=== PATIENT | female | born 1935 | race Caucasian/White ===

== ENCOUNTER 2018-03-24 09:06 | Emergency (ER) | payer MEDICARE, OTHER ==
--- NOTE | 2018-03-24 09:18 | UC ---
Lower Extremity/Ankle HPI - History of Current Complaint Stated Complaint: R LEG INJURY Hx Obtained From: Patient - Allergies/Home Medications Allergies/Adverse Reactions: Allergies Allergy/AdvReac Type Severity Reaction Status Date / Time MS Codeine [Codeine] AdvReac Mild "out of it" Verified 06/16/16 08:41 MS Erythromycin AdvReac GI Upset Verified 06/16/16 08:41 [Erythromycin] PMH/Surg Hx/FS Hx/Imm Hx Cardiovascular History: Hypertension Other History Of: Negative For: Anticoagulant Therapy - Surgical History Surgical History: Yes Surgery Procedure, Year, and Place: PARTIAL HYSTERECTOMY. GALLBLADDER. TONSILLECTOMY - Family History Known Family History: Positive: Hypertension - mother Negative: Cardiac Disease - Social History Occupation: Retired Lives: With Family Alcohol Use: None Substance Use Type: None Smoking Status (MU): Never Smoked Tobacco Review of Systems All Other Systems Reviewed And Are Negative: Yes Discharge - Discharge Plan Referrals: Chika Pena NP [Primary Care Provider] -
--- NOTE | 2018-03-24 09:22 | UC ---
Lower Extremity/Ankle HPI - HPI Summary HPI Summary: 82 yo female presents with right leg wound. She tells me that 5 days ago she hit her right lower leg against a box and sustained a flap like superficial laceration. Has been bandaging the area since that time, but over the last 2 days has noticed yellow drainage and increased redness to the area. Has been applying neosporin. Denies fever or chills. Unsure date of last tetanus - History of Current Complaint Stated Complaint: R LEG INJURY Time Seen by Provider: 03/24/18 09:21 Hx Obtained From: Patient Onset/Duration: Sudden Onset Severity Initially: Mild Severity Currently: Mild Pain Intensity: 1 Pain Scale Used: 0-10 Numeric Able to Bear Weight: Yes - Allergies/Home Medications Allergies/Adverse Reactions: Allergies Allergy/AdvReac Type Severity Reaction Status Date / Time codeine Allergy See Comment Verified 03/24/18 09:34 erythromycin base Allergy GI Upset Verified 03/24/18 09:34 Home Medications: Home Medications LevoCETirizine TAB (NF) [Xyzal TAB (NF)] 5 mg PO DAILY 03/24/18 [History Confirmed 03/24/18] Triamterene/HCTZ 37.5-25 MG* [Dyazide CAP*] 1 cap PO DAILY 03/24/18 [History Confirmed 03/24/18] PMH/Surg Hx/FS Hx/Imm Hx Endocrine History: Dyslipidemia Cardiovascular History: Hypertension Other History Of: Negative For: Anticoagulant Therapy - Surgical History Surgical History: Yes Surgery Procedure, Year, and Place: PARTIAL HYSTERECTOMY. GALLBLADDER. TONSILLECTOMY - Family History Known Family History: Positive: Hypertension - mother Negative: Cardiac Disease - Social History Occupation: Retired Lives: With Family Alcohol Use: None Substance Use Type: None Smoking Status (MU): Never Smoked Tobacco Review of Systems Constitutional: Negative Skin: Other - Right lower leg wound Respiratory: Negative Cardiovascular: Negative Neurovascular: Negative Neurological: Negative Psychological: Negative All Other Systems Reviewed And Are Negative: Yes Physical Exam - Summary Physical Exam Summary: GENERAL: NAD. WDWN. No pain distress. SKIN: Right anterior lower le.0cm flap-like superficial laceration with surrounding erythema and mild purulent yellow discharge. Mild TTP. No streaking. NECK: Supple. Nontender. No lymphadenopathy. CHEST: No accessory muscle use. Breathing comfortably and in no distress. CV: Pulses intact NEURO: Alert. CN II-XII grossly intact. PSYCH: Age appropriate behavior. Triage Information Reviewed: Yes Vital Signs: Vital Signs: Temp Pulse Resp BP Pulse Ox 97.1 F 90 16 135/71 98 03/24/18 09:28 03/24/18 09:28 03/24/18 09:28 03/24/18 09:28 03/24/18 09:28 Vital Signs Reviewed: Yes Lower Extremity Course/Dx - Course Course Of Treatment: Wound infection right lower leg. tdap updated today. Wound bandaged with telfa. Culture obtained. Rx for keflex. Change dressing daily. - Differential Dx/Diagnosis Provider Diagnoses: Right lower leg wound infection Discharge - Sign-Out/Discharge Documenting (check all that apply): Patient Departure - Discharge Plan Condition: Stable Disposition: HOME Prescriptions: Cephalexin CAP* [Keflex CAP*] 500 mg PO BID #14 cap Patient Education Materials: Wound Infection (DC), Acute Wound Care (ED) Referrals: Chika Pena NP [Primary Care Provider] - Additional Instructions: If you develop a fever, shortness of breath, chest pain, new or worsening symptoms - please call your PCP or go to the ED. 1) Change dressing daily - Billing Disposition and Condition Condition: STABLE Disposition: Home Attestation Statement User Type: Provider - I was available for consult. This patient was seen by the [facility]. The patient was not presented to, seen by, or examined by me. -Terry
[2018-03-24 09:33] VITALS: BP 135/71
[2018-03-24] MEDS ORDERED: Tetan/Diph/Pertus SYR(Tdap)* 0.5 ML SYR(BOOSTRIX) use SYR IM ONE (09:38)
== END 2018-03-24 10:03 | disposition home or self-care (01) ==
LOC: UCEAST 09:06
DX: S81.811A Laceration without foreign body, right lower leg, initial encounter (principal); L08.9 Local infection of the skin and subcutaneous tissue, unspecified; I10 Essential (primary) hypertension; Z88.1 Allergy status to other antibiotic agents; Z88.5 Allergy status to narcotic agent; Z79.899 Other long term (current) drug therapy; W22.8XXA Striking against or struck by other objects, initial encounter; Y92.9 Unspecified place or not applicable
CPT/HCPCS: 87070; 87077; 87186; 87205; 87640; 87641; 90471; 90715; 99212; G0463

== ENCOUNTER 2018-03-28 09:32 | Emergency (ER) | payer MEDICARE, OTHER ==
[2018-03-28 09:52] VITALS: BP 147/68
--- NOTE | 2018-03-28 10:00 | UC ---
Skin Complaint HPI - HPI Summary HPI Summary: This is renita Butt documenting for Dr. Altaf Bunn MD. Pt is an 82 y/o F who presents to [facility] c/o abrasion on right lower leg. She was seen here in 03/24/18 for same abrasion and says the Keflex prescription has not been helping. She is in more pain and the area is now erythematous and has yellowish discharge. - History of Current Complaint [facility] Time Se[facility] by Provider: 03/28/18 09:41 Stated Complaint: LEG PAIN Hx Obtained From: Patient Onset/Duration: Lasting Days, Still Present Skin Exposure Onset/Duration: Days Ago Onset Severity: Worse Since: - Her last visit on 03/24/18 Current Severity: None Pain Intensity: 0 Pain Scale Used: 0-10 Numeric Location: Discrete - Right Lower Leg Character: Pain, Redness Alleviating Factor(s): Nothing Associated Signs & Symptoms: Positive: Bruising - Allergy/Home Medications Allergies/Adverse Reactions: Allergies Allergy/AdvReac Type Severity Reaction Status Date / Time codeine Allergy See Comment Verified 03/28/18 09:46 erythromycin base Allergy GI Upset Verified 03/28/18 09:46 Review of Systems Constitutional: Fever - NEGATIVE Skin: Bruising - Right lower leg, Other - Erythema All Other Systems Reviewed And Are Negative: Yes PMH/Surg Hx/FS Hx/Imm Hx Endocrine History: Dyslipidemia Cardiovascular History: Hypertension Other History Of: Negative For: Anticoagulant Therapy - Surgical History Surgical History: Yes Surgery Procedure, Year, and Place: PARTIAL HYSTERECTOMY. GALLBLADDER. TONSILLECTOMY - Family History Known Family History: Positive: Hypertension - mother Negative: Cardiac Disease - Social History Alcohol Use: None Substance Use Type: None Smoking Status (MU): Never Smoked Tobacco - Immunization History Most Recent Tetanus Shot: not sure Physical Exam - Summary Physical Exam Summary: VITAL SIGNS: Reviewed. GENERAL: Patient is a well-developed and nourished female who is lying comfortable in the stretcher. Patient is not in any acute respiratory distress. HEAD AND FACE: Normocephalic EYES: PERRLA, EOMI x 2. EARS: Hearing grossly intact. MOUTH: Oropharynx within normal limits. NECK: Supple, trachea is midline, no adenopathy, no JVD, no carotid bruit. CHEST: Symmetric, no tenderness at palpation LUNGS: Clear to auscultation bilaterally. No wheezing or crackles. CVS: Regular rate and rhythm, S1 and S2 present, no murmurs or gallops appreciated. ABDOMEN: Soft, non-tender. Bowel sounds are normal. No abdominal abnormal pulsations. EXTREMITIES: 1 x 1 abrasion on right lower leg with yellow discharge and surrounding erythema. Good pulses. Full ROM in all major joints, no edema, no cyanosis or clubbing. NEURO: Alert and oriented x 3. No acute neurological deficits. Speech is normal and follows commands. SKIN: Dry and warm Triage Information Reviewed: Yes Vital Signs: Initial Vital Signs Temp 97.1 F 03/28/18 09:46 Pulse 87 03/28/18 09:46 Resp 16 03/28/18 09:46 BP 147/68 03/28/18 09:46 Pulse Ox 99 03/28/18 09:46 Vital Signs Reviewed: Yes Course/Dx - Course Course Of Treatment: Patient is a 82-year-old female who presents to the emergency room with worsening cellulitis. She reports that he a couple days ago the patient was seen in the urgent care and she was found to have a cellulitis. She was placed on Keflex, she's been taking his medication for couple days and the symptoms worsen. I checked in the cultures and sensitivities and the patient is sensitive to Bactrim. Therefore the patient was offered Bactrim however she was instructed to go to the emergency room if the symptoms worsen. The patient understands and agrees. Patient is hemolyticus stable alert and oriented 3. - Differential Diagnoses - Skin Complaint Differential Diagnoses: Cellulitis, Contact Dermatitis, Drug Rash, Eczema - Diagnoses Provider Diagnoses: Acute cellulitis Discharge - Sign-Out/Discharge Documenting (check all that apply): Patient Departure - Discharge Plan Condition: Stable Disposition: HOME Prescriptions: Sulfamethox/Trimethoprim DS* [Bactrim DS 800/160 TAB*] 1 tab PO BID #20 tab Patient Education Materials: Cellulitis (ED) Referrals: Chika Pena NP [Primary Care Provider] - Additional Instructions: Take medications as instructed and adhere to plan Take Acetaminophen or ibuprofen for pain or fever Increase your fluid intake Return to the or go to the emergency department if symptoms worsen Follow-up with primary care physician in next 2-3 days - Billing Disposition and Condition Condition: STABLE Disposition: Home
== END 2018-03-28 10:03 | disposition home or self-care (01) ==
LOC: UCEAST 09:32
DX: S80.811D Abrasion, right lower leg, subsequent encounter (principal); L03.115 Cellulitis of right lower limb; X58.XXXD Exposure to other specified factors, subsequent encounter; Z88.1 Allergy status to other antibiotic agents; Z88.5 Allergy status to narcotic agent
CPT/HCPCS: 99212; G0463

== ENCOUNTER 2019-03-29 09:28 | Emergency (ER) | payer MEDICARE, OTHER ==
[2019-03-29 09:39] VITALS: BP 138/87
--- NOTE | 2019-03-29 09:57 | UC ---
General HPI - HPI Summary HPI Summary: 2 wks ago she left on a plane to [place] and after approx 3 days she began to feel ' off'. She then drove for a 6 hr trip with stops with family and continued to feel weak, fatigued. Other family members were also ill but recovered quickly. She has flown back yesterday and comes in today with fatigue, weakness, decr. activity. She did have diarrhea x2 this AM but otherwise no other symptoms. oF NOTE SHE LOST HER PARTNER OF 65 YRS. 3 WKS. AGO. She is here w/ her son who states she is usually much stronger than this and more mobile. - History of Current Complaint Chief Complaint: UCGeneralIllness Stated Complaint: WEAK CHILLS Time Seen by Provider: 03/29/19 09:47 Hx Obtained From: Patient Onset/Duration: Lasting Weeks - 2 Pain Intensity: 0 - Allergy/Home Medications Allergies/Adverse Reactions: Allergies Allergy/AdvReac Type Severity Reaction Status Date / Time codeine Allergy See Comment Verified 03/29/19 09:31 erythromycin base Allergy GI Upset Verified 03/29/19 09:31 PMH/Surg Hx/FS Hx/Imm Hx Previously Healthy: Yes Cardiovascular History: Cardiac Disease, Hypertension Other History Of: Negative For: Anticoagulant Therapy - Surgical History Surgical History: Yes Surgery Procedure, Year, and Place: PARTIAL HYSTERECTOMY. GALLBLADDER. TONSILLECTOMY - Family History Known Family History: Positive: Hypertension - mother Negative: Cardiac Disease - Social History Alcohol Use: None Substance Use Type: None Smoking Status (MU): Never Smoked Tobacco - Immunization History Most Recent Tetanus Shot: not sure Review of Systems All Other Systems Reviewed And Are Negative: Yes Constitutional: Positive: Chills, Fatigue. Negative: Fever ENT: Negative: Dental Pain, Sore Throat, Sinus Congestion Respiratory: Negative: Cough Cardiovascular: Negative: Palpitations, Chest Pain Gastrointestinal: Positive: Diarrhea - Started this AM Genitourinary: Negative: Dysuria Musculoskeletal: Negative: Myalgia Neurological: Negative: Headache, Weakness, Numbness Physical Exam Triage Information Reviewed: Yes Appearance: Well-Appearing Vital Signs: Initial Vital Signs Temp 97.9 F 03/29/19 09:33 Pulse 100 03/29/19 09:33 Resp 20 03/29/19 09:33 BP 138/87 03/29/19 09:33 Pulse Ox 100 03/29/19 09:33 Vital Signs Reviewed: Yes Eyes: Positive: Conjunctiva Clear ENT: Positive: Pharynx normal, TMs normal, Uvula midline Neck: Positive: Supple, Nontender, No Lymphadenopathy Respiratory Exam: Normal Cardiovascular Exam: Normal Neurological: Positive: Alert Psychological: Positive: Normal Response To Family Skin: Negative: Rashes Course/Dx - Course Course Of Treatment: Fatigue and weakness x 2 wks w/ no other symptoms but did report 2x diarrhea this AM. Exam unremarkable. Given vague symptoms obtained EKG to r/o cardiac source and UA. EKG reviewed w/ Dr. Walker and compared w/ EKG from but no other recent EKGs in this system. Although not normal appearing with ST depression in lat leads, unclear if this is new. Strongly recommended having her see primary care tomorrow for further evaluation of this and unclear if this is cause of her fatigue. UA did show leuks and we can tx empirically ; sending for cx. Vitals good. This could be viral etiology as she is just now having diarrhea but unsure if this would explain the 2 wks of fatigue. I have asked her to go see her primary care provider to continue evaluation. Of note her partner of approx 50yrs. 3 wks ago. - Differential Dx - Multi-Symptom Differential Diagnoses: Urinary Tract Infection, Other - Diagnoses Provider Diagnosis: Fatigue Discharge - Sign-Out/Discharge Documenting (check all that apply): Patient Departure All imaging exams completed and their final reports reviewed: No Studies - Discharge Plan Condition: Good Disposition: HOME Prescriptions: Sulfamethox/Trimethoprim DS* [Bactrim DS 800/160 TAB*] 1 tab PO BID 5 Days #10 tab Patient Education Materials: Fatigue (ED) Referrals: Chika Pena NP [Primary Care Provider] - Additional Instructions: As we discussed I think you may have a UTI causing some of your symptoms. I am treating you for this. Your EKG is not completely normal so you should see your primary care provider within the next 1-3 days for further evaluation. Any sudden changes to your symptoms please go to the Emergency Room - Billing Disposition and Condition Condition: GOOD Disposition: Home - Attestation Statements Provider Attestation: Per institutional requirements, I have reviewed the chart, however, I was not consulted specifically or made aware of this patient by the midlevel provider. I did not personally evaluate, interact with , or disposition this patient.
== END 2019-03-29 11:02 | disposition home or self-care (01) ==
LOC: UCEAST 09:28
DX: R53.83 Other fatigue (principal); R19.7 Diarrhea, unspecified; I10 Essential (primary) hypertension; Z88.5 Allergy status to narcotic agent
CPT/HCPCS: 81002; 87086; 93005; 99212; G0463

== ENCOUNTER 2019-04-09 08:19 | Emergency (ER) | payer MEDICARE, OTHER ==
[2019-04-09 09:37] LABS: Hematocrit 43 % (35-47); Hemoglobin 14.3 g/dL (12.0-16.0); Mean Corpuscular HGB Conc 33 g/dL (31-36); Mean Corpuscular Hemoglobin 29 pg (27-31); Mean Corpuscular Volume 88 fL (80-97); Mean Platelet Volume 8.9 fL (7.4-10.4); Platelet Count 396 10^3/uL (150-450); Red Cell Distribution Width 15 % (10-15); White Blood Count 16.1 10^3/uL (3.5-10.8)
--- NOTE | 2019-04-09 09:37 | ED ---
GI/ HPI - HPI Summary HPI Summary: Patient is an 83 year old female with no significant medical history presenting with constipation for 2 weeks. Patient traveled to [place] 3 weeks ago and developed a stomach bug and had diarrhea for which she was treated. When the illness resolved, patient was able to have normal bowel movements before experiencing constipation a week later. Patient usually has normal bowel movements once a day. Patient is active and consumes a regular diet. There have been no changes in her medications. Patient denies back pain, oliguria or dysuria. Patient is able to pass gas normally. Patient denies abdominal pain for the last 2 weeks; however, she took a laxative (Exlax) last night which caused abdominal discomfort. no fever. she has some nausea after laxative but no vomiting. Note written by MICHELLE Gracia - History of Current Complaint Chief Complaint: EDConstipation Time Seen by Provider: 04/09/19 08:28 Stated Complaint: CONSTIPATED 2 WKS PER PT Pain Intensity: 8 - Allergy/Home Medications Allergies/Adverse Reactions: Allergies Allergy/AdvReac Type Severity Reaction Status Date / Time codeine Allergy See Comment Verified 03/29/19 09:31 erythromycin base Allergy GI Upset Verified 03/29/19 09:31 PMH/Surg Hx/FS Hx/Imm Hx Endocrine/Hematology History: Denies: Hx Anticoagulant Therapy Cardiovascular History: Reports: Hx Hypertension - Cancer History Hx Chemotherapy: No Hx Radiation Therapy: No - Surgical History Surgery Procedure, Year, and Place: PARTIAL HYSTERECTOMY. GALLBLADDER. TONSILLECTOMY Infectious Disease History: No Infectious Disease History: Denies: Traveled Outside the in Last 30 Days - Family History Known Family History: Positive: Hypertension - mother Negative: Cardiac Disease - Social History Alcohol Use: None Substance Use Type: Reports: None Smoking Status (MU): Never Smoked Tobacco Review of Systems Negative: Fever Positive: Abdominal Pain Genitourinary: Negative Positive: no symptoms reported Skin: Negative All Other Systems Reviewed And Are Negative: Yes Physical Exam Triage Information Reviewed: Yes Vital Signs On Initial Exam: Initial Vitals Temp Pulse Resp BP Pulse Ox 97.2 F 95 18 126/87 94 04/09/19 08:22 04/09/19 08:22 04/09/19 08:22 04/09/19 08:22 04/09/19 08:22 Vital Signs Reviewed: Yes Appearance: Positive: Well-Appearing, No Pain Distress Skin: Positive: Warm, Skin Color Reflects Adequate Perfusion Head/Face: Positive: Normal Head/Face Inspection Eyes: Positive: Normal ENT: Positive: Normal ENT inspection Neck: Positive: Supple Respiratory/Lung Sounds: Positive: Clear to Auscultation, Breath Sounds Present Cardiovascular: Positive: Normal Abdomen Description: Positive: Nontender, Soft, Other: - no stool on rectal exam Bowel Sounds: Positive: Hypoactive Musculoskeletal: Positive: Normal Neurological: Positive: Normal Psychiatric: Positive: Normal AVPU Assessment: Alert Diagnostics - Vital Signs Vital Signs Temp Pulse Resp BP Pulse Ox 04/09/19 09:10 75 97 04/09/19 08:31 94 157/92 91 04/09/19 08:22 97.2 F 95 18 126/87 94 - Laboratory Result Diagrams: 04/09/19 09:25 04/09/19 09:25 Lab Statement: Any lab studies that have been ordered have been reviewed, and results considered in the medical decision making process. - Radiology abd Radiology Interpretation Completed By: Radiologist Summary of Radiographic Findings: IMPRESSION: NONOBSTRUCTIVE BOWEL GAS PATTERN. LARGE AMOUNT OF STOOL THROUGHOUT THE COLON. - CT abd CT Interpretation Completed By: Radiologist Summary of CT Findings: IMPRESSION: LARGE AMOUNT OF STOOL THROUGHOUT THE COLON. FATTY INFILTRATION OF THE LIVER. 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 Re-Evaluation - Re-Evaluation First Eval Re-Evaluation Time: 10:57 Change: Unchanged Comment: no pain GIGU Course/Dx - Course Course Of Treatment: 83 year old patient came in with constipation and some abdominal pain. Patient has been constipated for 2 weeks and is able to pass gas. Patient has no fever and has some nausea but no vomiting after taking a laxative. Physical exam was within normal limits. Abdominal exam showed hypoactive bowel sounds and some diffuse abdominal tenderness and discomfort. Digital rectal exam was within normal limits with no stool in the rectal vault. Abdominal X-ray showed stool throughout. CBC 16, K 3 - gave run of 20mEg K. With elevated white count, CT was ordered. CT just shows stool. Discuss options with patient and patient wants to do mag citrate. gave MiraLAX and Colace to continue at home. Told to follow up primary. Patient understands and agrees plan. - Diagnoses Differential Diagnoses - Female: Constipation, Fecal Impaction, Urinary Tract Infection Provider Diagnoses: Constipation Discharge - Sign-Out/Discharge Documenting (check all that apply): Patient Departure Patient Received Moderate/Deep Sedation with Procedure: No - Discharge Plan Condition: Good Disposition: HOME Prescriptions: Docusate CAP* [Colace Cap*] 100 mg PO BID #14 cap Polyethylene Glycol 3350* [Miralax*] 17 gm PO DAILY #10 packet Patient Education Materials: Constipation (ED) Referrals: Chika Pena NP [Primary Care Provider] - Additional Instructions: take miralax packet in 8 ounce of liquid daily take colace twice a day increase fiber intake Take Tylenol every 6 hours as needed for pain follow up with primary within 5 days Return to ED if develop any new or worsening symptoms - Billing Disposition and Condition Condition: GOOD Disposition: Home
[2019-04-09] MEDS ORDERED: NS 0.9% 1000 ML** 1,000 ML IV ONE ×2 (09:51→10:50)
[2019-04-09 10:06] LABS: ALT 29 U/L (7-52); AST 19 U/L (13-39); Albumin 4.2 g/dL (3.2-5.2); Albumin/Globulin Ratio 1.2 (1-3); Alkaline Phosphatase 162 U/L (34-104); Anion Gap 10 mmol/L (2-11); BUN/Creatinine Ratio 25.8 (8-20); Blood Urea Nitrogen 24 mg/dL (6-24); C Reactive Protein 20.18 mg/L (<8.01); CO2 Carbon Dioxide 31 mmol/L (22-32); Calcium 9.4 mg/dL (8.6-10.3); Chloride 96 mmol/L (101-111); EGFR African American 69.7 (>60); EGFR Non-African American 57.6 (>60); Globulin 3.4 g/dL (2-4); Glucose 160 mg/dL (70-100); Sodium 137 mmol/L (135-145); Total Protein 7.6 g/dL (6.4-8.9)
[2019-04-09] MEDS ORDERED: KCL 20 MEQ/100 ML IVPREMIX* 20 MEQ/100 ML BAG IV ONE (10:12)
[2019-04-09 10:25] LABS: ABS Basophils 0.1 10^3/ul (0-0.2); ABS Lymphocytes 1.3 10^3/ul (1.0-4.8); ABS Monocytes 0.5 10^3/ul (0-0.8); ABS Neutrophils 14.2 10^3/ul (1.5-7.7); Eosinophil % 0.2 %
[2019-04-09 12:00] LABS: Urine Appearance Clear; Urine Bilirubin Negative (Negative); Urine Blood Negative (Negative); Urine Color Yellow; Urine Glucose Negative (Negative); Urine Ketones Negative (Negative); Urine Nitrite Negative (Negative); Urine Protein Negative (Negative); Urine Specific Gravity 1.009 (1.010-1.030); Urine Urobilinogen Negative (Negative)
[2019-04-09] MEDS ORDERED: Iodixanol* (CONTRAST) 320 MG/ML 100 ML SDV IV ONE (12:04)
[2019-04-09] MEDS ORDERED: Magnesium CITRATE* 300 ML BTL PO ONE (12:51)
[2019-04-09 13:21] VITALS: BP 143/87
== END 2019-04-09 13:18 | disposition home or self-care (01) ==
LOC: ED 08:19
DX: K59.00 Constipation, unspecified (principal); Z88.1 Allergy status to other antibiotic agents; Z88.5 Allergy status to narcotic agent; I10 Essential (primary) hypertension; K76.0 Fatty (change of) liver, not elsewhere classified; I70.0 Atherosclerosis of aorta; I71.4 Abdominal aortic aneurysm, without rupture
CPT/HCPCS: 36415; 74019; 74177; 80053; 81003; 83605; 83690; 85025; 86140; 96365; 96366; 99282; A9270-GY; J3480; Q9967